=== PATIENT | female | born 1975 | race Caucasian/White ===

== ENCOUNTER 2017-06-11 22:14 | Emergency (ER) | payer OTHER ==
[~2017-06-11] VITALS: Ht 165.1 cm; Wt 70.0 kg
[2017-06-11 22:16] VITALS: BP 121/75; PULSE 106; RESP 16; TEMP 98.2; O2SAT 99
[2017-06-11] MEDS ORDERED: IBUP800T23 PO (23:35)
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
== END 2017-06-11 23:55 | disposition home or self-care (01) ==
LOC: NEPD 22:14
DX: S91.012A Laceration without foreign body, left ankle, initial encounter (principal); W45.8XXA Other foreign body or object entering through skin, initial encounter; Y93.89 Activity, other specified
CPT/HCPCS: 12001